=== PATIENT | female | born 1990 | race Caucasian/White ===

== ENCOUNTER 2018-03-10 11:28 | Emergency (ER) | payer MEDICAID ==
[~2018-03-10] VITALS: Ht 160 cm; Wt 52.0 kg
[2018-03-10] MEDS ORDERED: LIDOcaine 1% 30ml preserv. free vial IJ ONE (11:40)
[2018-03-10] MEDS ORDERED: SULF1TAB49 PO (12:20)
[2018-03-10 12:35] VITALS: BP 120/72
== END 2018-03-10 12:38 | disposition home or self-care (01) ==
LOC: ER 11:29
DX: L02.01 Cutaneous abscess of face (principal); L03.211 Cellulitis of face; Z56.0 Unemployment, unspecified; Z88.0 Allergy status to penicillin; Z88.5 Allergy status to narcotic agent; Z88.1 Allergy status to other antibiotic agents; Z79.899 Other long term (current) drug therapy
CPT/HCPCS: 10060; 99283; A6449; J3490